=== PATIENT | female | born 1995 | race American Indian/Alaskan Native ===

== ENCOUNTER 2025-02-23 00:19 | Emergency (ER) | payer MEDICAID ==
[2025-02-23] MEDS: Amoxicillin/Clavulanate K 875-125 MG Tab PO ONE (00:59)
== END 2025-02-23 01:14 | disposition home or self-care (01) ==
LOC: SUPCPDRO 00:19 → FB.ED 00:19
DX: L03.811 Cellulitis of head [any part, except face] (principal); H66.011 Acute suppurative otitis media with spontaneous rupture of ear drum, right ear
CPT/HCPCS: 99283; A9270